=== PATIENT | male | born 1990 | race African-American/Black ===

== ENCOUNTER 2018-12-02 08:26 | Emergency (ER) | payer SELFPAY ==
--- NOTE | 2018-12-02 08:37 | ED Physician Documentation ---
General Adult - HISTORIAN Historian: patient - HPI Stated Complaint: cough, congestion, some chest pain Chief Complaint: General Adult Onset: days ago Timing: still present Severity: moderate Further Comments: yes (Pt is a 28 yo aa male with cough/congestion/chest pain x 1 day. Pt has hx asthma in childhood, but has not used asthma meds recently. Pt has had cough productive of yellow sputum and has been wheezy according to his significan other. No fever.) - ROS CONST: no problems EYES/ENT: nasal congestion CVS/RESP: none, chest pain, cough GI/: none MS/SKIN/LYMPH: none - PAST HX Past History: asthma Allergies/Adverse Reactions: Allergies Allergy/AdvReac Type Severity Reaction Status Date / Time No Known Allergies Allergy Verified 12/02/18 08:47 Home Medications: Ambulatory Orders Medication Instructions Recorded NK 02/11/15 - SOCIAL HX Smoking History: cigarettes Alcohol Use: occasionally - FAMILY HX Family History: No - VITAL SIGNS Vital Signs: Vital Signs Temp Pulse Resp BP Pulse Ox 118/68 02/11/15 14:40 - REVIEWED ASSESSMENTS Nursing Assessment Reviewed: Yes Vitals Reviewed: Yes Progress - Progress Progress: CXR: No tsering consolidation or effusion. Rx Z-harsha. Use as directed on package. Rx Albuterol (90 mcg/spray) MDI. Take 2 puffs every 4 to 6 hours as needed for wheezing. General Adult Physical Exam - PHYSICAL EXAM GENERAL APPEARANCE: mild distress EENT: pharynx normal NECK: normal inspection, supple RESPIRATORY: no resp distress, chest non-tender, breath sounds normal CVS: reg rate & rhythm, heart sounds normal ABDOMEN: soft, no organomegaly, normal bowel sounds BACK: normal inspection, no CVA tenderness SKIN: warm/dry, normal color EXTREMITIES: non-tender, normal range of motion, no evidence of injury NEURO: oriented X3, motor nml, sensation nml Discharge Clincal Impression: URI (upper respiratory infection) Qualifiers: URI type: unspecified URI Qualified Code(s): J06.9 - Acute upper respiratory infection, unspecified Referrals: Primary Doctor,No [Primary Care Provider] - Condition: Stable Disposition: 01 HOME, SELF-CARE Decision to Admit: NO Decision Time: 09:45
[2018-12-02 08:58] LABS: BASOPHILS % 0.3 % (0.0-1.5); NEUTROPHILS # 3.9 # k/uL (1.4-7.7); eGFR (Non-African) > 60
--- NOTE | 2018-12-02 09:38 | Diagnostic Imaging Report ---
VIDAL GRAVES [facility] [address] [facility] [address] [id number] Report Submission Date: Dec 02, 2018 9:25:44 AM CDT Patient Study Name: ALEJANDRA DEE Date: Dec 02, 2018 8:53:00 AM CDT Modality Type: DX Gender: M Description: CHEST 2VIEW : 89 Institution: [facility] Physician: VIDAL GRAVES Exam: Chest two views. History: Cough. No previous studies are available for comparison. Lung shi are well aerated without tsering consolidation or effusion. Heart and mediastinal contour are normal. No bony abnormalities are seen. Impression: No tsering consolidation or effusion. Electronically signed on Dec 02, 2018 9:25:44 AM CDT by: Richie JULES
[2018-12-02 10:04] VITALS: BP 121/90
== END 2018-12-02 10:02 | disposition home or self-care (01) ==
LOC: ED 08:26
DX: J06.9 Acute upper respiratory infection, unspecified (principal)
CPT/HCPCS: 71046; 80053; 84484; 85025; 93005; 99284; S1016